=== PATIENT | male | born 1975 | race Caucasian/White ===

== ENCOUNTER 2017-07-04 15:28 | Emergency (ER) | payer MEDICAID ==
[~2017-07-04] VITALS: Ht 177.8 cm; Wt 75.0 kg
[2017-07-04] MEDS ORDERED: ONDANSETRON HCL 4MG/2ML VIAL IV STA (18:49)
[2017-07-04] MEDS ORDERED: KETOROLAC 30MG/ML VIAL IV STA (18:49)
[2017-07-04] MEDS ORDERED: SODIUM CHLORIDE 0.9% 1,000 ML IV ONE (18:49)
[2017-07-04 18:59] LABS: CLARITY URINE CLEAR (CLEAR); COLOR URINE YELLOW (YELLOW); GLUCOSE URINE NEGATIVE (NEGATIVE); KETONES URINE NEGATIVE (NEGATIVE); LEUKOCYTE ESTERASE URINE NEGATIVE (NEGATIVE); NITRITE URINE NEGATIVE (NEGATIVE); OCCULT BLOOD URINE NEGATIVE (NEGATIVE); PROTEIN URINE NEGATIVE (NEGATIVE); SPECIFIC GRAVITY URINE 1.012 (1.005-1.030); UROBILINOGEN URINE 0.2 E.U./dL (0.2-1.0)
[2017-07-04] MEDS ORDERED: LORAZEPAM 2MG/ML CPJ IV ONE (19:00)
[2017-07-04 20:01] LABS: EOSINOPHILS % 2.5 % (0.0-5.0); HEMATOCRIT. 47.1 % (42.0-52.0); HEMOGLOBIN. 16.4 g/dL (14.0-18.0); LYMPHOCYTES % 24.9 % (20.0-50.0); MEAN CORPUSCULAR HEMOGLOBIN 32.4 pg (28.0-32.0); MEAN CORPUSCULAR VOLUME 93.3 fL (80.0-94.0); MEAN PLATELET VOLUME 9.2 fl (7.4-10.4); MONOCYTES % 8.4 % (2.0-8.0); NEUTROPHILS % 63.2 % (40.0-76.0); PLATELET 173 x1000/uL (130-400); RED BLOOD CELL COUNT 5.05 mill/uL (4.7-6.1); RED CELL DISTRIBUTION WIDTH 12.5 % (11.6-14.6)
[2017-07-04 20:02] LABS: D-DIMER < 0.19 mg/L FEU (<0.50); INR 1.1; PROTHROMBIN TIME 10.9 sec
[2017-07-04 20:10] LABS: CARBON DIOXIDE 29 mEq/L (21-32); CHLORIDE 103 mEq/L (98-107); TROPONIN I < 0.02 ng/mL (0.00-0.04)
[2017-07-04 22:25] VITALS: BP 112/70
== END 2017-07-04 22:29 | disposition home or self-care (01) ==
LOC: ER 18:03
DX: R07.89 Other chest pain (principal); R00.2 Palpitations; M54.5 Low back pain; R11.0 Nausea; K76.0 Fatty (change of) liver, not elsewhere classified
CPT/HCPCS: 36415; 71010; 74176; 80053; 81003; 83690; 84484; 85025; 85379; 85610; 93005; 96361; 96374; 96375; 99285; J1885; J2060; J2405; J7030; Z7610

== ENCOUNTER 2017-08-09 01:34 | Emergency (ER) | payer MEDICAID ==
[~2017-08-09] VITALS: Ht 180.3 cm; Wt 80.0 kg
[2017-08-09 02:02] VITALS: BP 126/83
== END 2017-08-09 05:26 | disposition left against medical advice (07) ==
LOC: ER 01:34
DX: Z53.21 Procedure and treatment not carried out due to patient leaving prior to being seen by health care provider (principal)